=== PATIENT | male | born 1985 | race Hispanic/Latino ===

== ENCOUNTER 2021-12-13 09:07 | Outpatient (CLI) | payer BC ==
[2021-12-13 18:25] LABS: SARS-CoV-2 PCR by NAA Not Detected (NotDetected)
== END 2021-12-13 09:08 | disposition home or self-care (01) ==
LOC: CSHLAB 09:07
PROVIDERS: ATTEND Surgery
DX: Z20.822 Contact with and (suspected) exposure to COVID-19 (principal); K80.20 Calculus of gallbladder without cholecystitis without obstruction
CPT/HCPCS: U0003; U0005

== ENCOUNTER 2021-12-17 07:18 | Day surgery (SDC) | payer BC ==
[2021-12-13 08:49] VITALS: BMI 28.2
[~2021-12-17 07:18] MED LIST: Bupivacaine PF 0.5% 30 ML VIAL ONE; EPINEPHrine 1 MG/ML AMP ONE; Iopamidol 0 ML ONE
[2021-12-17] MEDS ORDERED: Lidocaine 1% MPF 2 ML VIAL ONE (08:10)
[2021-12-17] MEDS ORDERED: ceFAZolin 2 GM/Dextrose 50 ML IVPB ONE (08:59)
[2021-12-17] MEDS ORDERED: Rocuronium Bromide 10 MG/ML (10ML VIAL) ONE (10:29)
[2021-12-17] MEDS ORDERED: PROPOFOL 20 ML ONE (10:29)
[2021-12-17] MEDS ORDERED: Fentanyl 100 MCG/2 ML VIAL ONE ×2 (10:29→12:00)
[2021-12-17] MEDS ORDERED: Ondansetron PF 4 MG/2 ML Vial ONE (10:29)
[2021-12-17] MEDS ORDERED: Midazolam HCl 2 mg/2 ml Vial ONE (10:29)
[2021-12-17] MEDS ORDERED: Dexamethasone 4 mg/ml Vial ONE (10:29)
[2021-12-17] MEDS ORDERED: Lidocaine 1% (PF) 30 ML VIAL ONE (10:30)
[2021-12-17] MEDS ORDERED: Glycopyrrolate 0.2 MG/ML 5 ML SYRINGE ONE (11:22)
[2021-12-17] MEDS ORDERED: SUGAMMADEX SODIUM 200 MG/2 ML VIAL ONE (11:24)
[2021-12-17] MEDS ORDERED: Ketorolac Tromethamine 30 MG/ML VIAL ONE (12:00)
[2021-12-17] MEDS ORDERED: HYDROcodone/Acetaminophen 10/325 mg Tablet ONE (13:21)
== END 2021-12-17 13:45 | disposition home or self-care (01) ==
LOC: CSHSDC 07:18
PROVIDERS: ATTEND Surgery
PROC: 0FT44ZZ Resection of Gallbladder, Percutaneous Endoscopic Approach (ICD-10-PCS; principal; 2021-12-17)
DX: K80.10 Calculus of gallbladder with chronic cholecystitis without obstruction (principal); Z79.899 Other long term (current) drug therapy
CPT/HCPCS: 88304; C1713; J0171; J0690; J1100; J1885; J2001; J2250; J2405; J2704; J3010; Q9967; S0020